=== PATIENT | female | born 1940 | race Two or more races ===

== ENCOUNTER 2021-06-26 22:47 | Emergency (ER) | payer OTHER ==
[~2021-06-26] VITALS: Ht 149.9 cm; Wt 52.2 kg
[~2021-06-26 22:47] MED LIST: COZAAR100 MG; PREVACID30 MG; SYNTHROID88 MCG; ZOLOFT50 MG
== END 2021-06-27 03:07 | disposition home or self-care (01) ==
LOC: ER 22:47
DX: R42 Dizziness and giddiness (principal); T43.595A Adverse effect of other antipsychotics and neuroleptics, initial encounter; Y92.89 Other specified places as the place of occurrence of the external cause